=== PATIENT | female | born 1975 | race Hispanic/Latino ===

== ENCOUNTER 2023-12-01 01:56 | Emergency (ER) | payer BC, OTHER ==
[~2023-12-01] VITALS: Ht 149.9 cm; Wt 64.9 kg
[2023-12-01 02:34] LABS: BASOPHILS # (AUTO) 0.09 K/uL (0.00-0.20); BASOPHILS % (AUTO) 1.4 % (0.0-5.0); EOSINOPHILS # (AUTO) 0.33 K/uL (0.00-0.70); EOSINOPHILS % (AUTO) 5.1 % (0.0-8.0); HEMATOCRIT 29.1 % (36-48); IMMATURE GRANULOCYTE ABSOLUTE 0.01 K/uL (0-1); LYMPHOCYTES # (AUTO) 2.3 K/uL (1.0-4.8); LYMPHOCYTES % (AUTO) 35.2 % (21.0-51.0); MEAN CORPUSCULAR HEMOGLOBIN 19.6 pg (27.0-33.0); MEAN CORPUSCULAR HGB CONC 29.6 g/dL (32.0-36.0); MEAN CORPUSCULAR VOLUME 66.4 fL (79-99); MONOCYTES # (AUTO) 0.6 K/uL (0.1-1.0); MONOCYTES % (AUTO) 9.5 % (3.0-13.0); NEUTROPHILS # (AUTO) 3.1 K/uL (1.8-7.7); NEUTROPHILS % (AUTO) 48.6 % (40.0-77.0); PLATELET COUNT (AUTO) 339 K/uL (130-400); RED BLOOD CELL COUNT(AUTO) 4.38 MIL/uL (4.00-5.50); RED CELL DISTRIBUTION WIDTH 19.4 % (11.0-15.5); WHITE BLOOD COUNT (AUTO) 6.4 K/uL (4.8-10.8)
[2023-12-01] MEDS: MORPHINE 2 MG SYG IM ONE (02:37)
[2023-12-01] MEDS: ONDANSETRON 4MG INJ IVP ONE (02:37)
[2023-12-01] MEDS: FAMOTIDINE 20MG VIAL IV ONE (02:37)
[2023-12-01] MEDS: KETOROLAC 30MG VIAL (30MG/ML) IVP ONE (02:37)
[2023-12-01] MEDS: LACTATED RINGERS 1000ML 1,000 ML IV ONE (02:37)
[2023-12-01 02:47] LABS: INR <= 0.93 (0.85-1.15); PROTHROMBIN TIME 9.9 SEC (9.6-11.6)
[2023-12-01 02:48] LABS: CREATININE 0.8 mg/dL (0.5-1.0)
[2023-12-01 02:49] LABS: PARTIAL THROMBOPLASTIN TIME 26.7 SEC (26.3-35.5)
[2023-12-01 02:53] LABS: ALBUMIN 3.6 g/dL (3.5-5.0); BILIRUBIN,TOTAL 0.3 mg/dL (0.2-1.0); TOTAL PROTEIN, SERUM 7.3 g/dL (6.0-8.3)
[2023-12-01] MEDS ORDERED: IOHEXOL 350 MG/ML 100ML INFUS..BTL IV ONE (03:09)
[2023-12-01 04:50] VITALS: BP 102/56; PULSE 54; RESP 18; O2SAT 96
[2023-12-01] MEDS ORDERED: MELO-108 PO (05:52)
[2023-12-01] MEDS ORDERED: PEG4000S8 PO (05:52)
[2023-12-01 06:00] LABS: APPEARANCE,URINE CLEAR (CLEAR); BILIRUBIN,URINE NEGATIVE (NEGATIVE); COLOR,URINE LIGHT-YELLOW (YELLOW); GLUCOSE, URINE (UA) NEGATIVE (NEGATIVE); KETONES,URINE NEGATIVE (NEGATIVE); LEUKOCYTE ESTERASE ,URINE NEGATIVE Leu/uL (NEGATIVE); MUCUS,URINE RARE LPF (None Seen); NITRATE,URINE NEGATIVE (NEGATIVE); OCCULT BLOOD,URINE NEGATIVE (NEGATIVE); PROTEIN,URINE 20 mg/dL (NEGATIVE); RBC,URINE 0-1 /HPF (0-1); SQUAMOUS EPITHELIAL CELL,UR RARE /HPF (0-2); UROBILINOGEN,URINE 0.2 mg/dL (0.2-1.0); WBC,URINE 0-1 /HPF (0-1)
== END 2023-12-01 06:28 | disposition home or self-care (01) ==
LOC: EDH 01:56
DX: K59.00 Constipation, unspecified (principal); D50.9 Iron deficiency anemia, unspecified; R10.31 Right lower quadrant pain; E03.9 Hypothyroidism, unspecified; Z79.899 Other long term (current) drug therapy; Z98.890 Other specified postprocedural states
CPT/HCPCS: 99284; 74177; 96374; 96375; 84484; 80053; 83690; 85025; 85610; 85730; 83605; 81001 ×2; 36415; 93005; 84145; 96372; J7120; J3490; J2270; J2405; J1885; Q9967

== ENCOUNTER → 2024-03-10 | Outpatient (CLI) | payer BC ==
[~2024-03-10] MED LIST: MELO-108 PO; PEG4000S8 PO
== END | disposition home or self-care (01) ==
LOC: RAH 08:17
PROVIDERS: ATTEND Family Medicine
DX: Z12.31 Encounter for screening mammogram for malignant neoplasm of breast (principal); R92.323 Mammographic fibroglandular density, bilateral breasts; R92.30 Dense breasts, unspecified
CPT/HCPCS: 77067

== ENCOUNTER → 2024-08-16 | Outpatient (CLI) | payer BC ==
--- NOTE | 2024-08-16 11:16 | HMCIMG ---
Pelvic transvaginal ultrasound -female Findings: The examination shows an anteverted uterus which is normal in size and echogenicity. It measures 6.3 x 2.5 x 5 cm. The endometrial lining is normal in thickness. It measures 1 mm. Left ovary is normal in size and echogenicity and vascularity. Right ovary is obscured. Minimal free fluid in the cul-de-sac. There are no adnexal abnormalities. No other significant abnormalities are seen. No fluid collections or masses or free fluid are identified in the pelvis. Impression: Nonvisualization of the right ovary. Minimal free fluid in the cul-de-sac. Otherwise unremarkable.
== END | disposition home or self-care (01) ==
LOC: RAH 07:35
PROVIDERS: ATTEND Obstetrics & Gynecology
DX: N95.0 Postmenopausal bleeding (principal)
CPT/HCPCS: 76857